=== PATIENT | male | born 1950 | race Caucasian/White ===

== ENCOUNTER → 2018-12-23 | Outpatient (CLI) | payer OTHER ==
[2018-12-23 18:32] LABS: ANION GAP 8 (5-13); BLOOD UREA NITROGEN 26 mg/dl (7-20); CALCIUM 9.6 mg/dl (8.4-10.2); CARBON DIOXIDE 23 mmol/L (21-31); CHLORIDE 113 mmol/L (97-110); CREATININE 0.88 mg/dl (0.61-1.24); Estimated GFR > 60 mL/min (>60); GLUCOSE 101 mg/dl (70-220); POTASSIUM 4.6 mmol/L (3.5-5.1); SODIUM 144 mmol/L (135-144)
== END | disposition home or self-care (01) ==
LOC: LAB 17:43
DX: R07.9 Chest pain, unspecified (principal)
CPT/HCPCS: 80048

== ENCOUNTER → 2019-01-12 | Outpatient (CLI) | payer OTHER ==
[2019-01-12] MEDS: NITROGLYCERIN AEROSOL (4.9 GM) (10:37)
[2019-01-12] MEDS: SOD CHLORIDE 0.9% 100 ML (10:41)
[2019-01-12] MEDS: IOHEXOL 100 ML (10:42)
[2019-01-12] MEDS: NITROGLYCERIN AEROSOL (4.9 GM) SL (17:01)
== END | disposition home or self-care (01) ==
LOC: C/S 09:16
DX: R94.39 Abnormal result of other cardiovascular function study (principal); R07.9 Chest pain, unspecified
CPT/HCPCS: 75571; 75571-59; 75574

== ENCOUNTER 2019-03-09 07:26 | Observation (INO) | payer OTHER ==
[2019-03-09 08:48] LABS: ADD MAN DIFF? NO
[2019-03-09 08:57] LABS: WHITE BLOOD COUNT 5.2 10^3/ul (4.8-10.8)
[2019-03-09 08:57] LABS: BASOPHILS % 0.2 % (0.0-2.0); EOSINOPHILS # 0.1 10^3/ul (0.0-0.5); EOSINOPHILS % 1.5 % (0.0-7.0); HEMATOCRIT 36.1 % (42.0-52.0); HEMOGLOBIN 11.9 g/dl (14.0-18.0); LYMPHOCYTES # 1.2 10^3/ul (0.8-2.9); LYMPHOCYTES % 23.9 % (15.0-51.0); MEAN CORPUSCULAR HEMOGLOBIN 32.6 pg (29.0-33.0); MEAN CORPUSCULAR VOLUME 98.9 fl (82.0-101.0); MEAN PLATELET VOLUME 9.7 fl (7.4-10.4); MONOCYTE # 0.6 10^3/ul (0.3-0.9); MONOCYTES % 11.4 % (0.0-11.0); NEUTROPHIL # 3.3 10^3/ul (1.6-7.5); NEUTROPHILS % 62.6 % (39.0-77.0); PLATELET COUNT 164 10^3/UL (140-415); RED BLOOD COUNT 3.65 10^6/ul (4.70-6.10); RED CELL DISTRIBUTION WIDTH 12.9 % (11.5-14.5)
[2019-03-09] MEDS ORDERED: HEPARIN 1000 UNITS/NS (A-LINE) 1,000 ML (09:01)
[2019-03-09] MEDS ORDERED: LIDOCAINE 1% (MDV) 20 ML INJ (09:01)
[2019-03-09] MEDS ORDERED: IODIXANOL LOCM 100 ML BTL ×2 (09:02→10:55)
[2019-03-09 09:13] LABS: INR 1.02; PROTIME 13.5 Sec (11.9-14.9); PT RATIO 1.1
[2019-03-09 09:14] LABS: PARTIAL THROMBOPLASTIN TIME 32.5 Sec (23.0-35.0)
[2019-03-09 09:16] LABS: ANION GAP 9 (5-13); BLOOD UREA NITROGEN 20 mg/dl (7-20); CALCIUM 9.2 mg/dl (8.4-10.2); CARBON DIOXIDE 25 mmol/L (21-31); CHLORIDE 114 mmol/L (97-110); CHOL/HDL RATIO 3.1 RATIO; CHOLESTEROL 91 mg/dl (100-200); CREATININE 0.93 mg/dl (0.61-1.24); Estimated GFR > 60 mL/min (>60); GLUCOSE 102 mg/dl (70-220); HDL CHOLESTEROL 29 mg/dl (31-75); LDL CHOLESTEROL,CALCULATED 50 mg/dl; POTASSIUM 4.5 mmol/L (3.5-5.1); TRIGLYCERIDES 62 mg/dl (0-149)
[2019-03-09] MEDS ORDERED: HEPARIN 1000 UNITS/ML 10 ML INJ (09:16)
[2019-03-09] MEDS ORDERED: VERAPAMIL 5 MG INJ (09:17)
[2019-03-09] MEDS ORDERED: NITROGLYCERIN (IC) 100 MCG/ML INJ (09:22)
[2019-03-09 09:31] LABS: SODIUM 148 mmol/L (135-144)
[2019-03-09] MEDS ORDERED: MIDAZOLAM 1 MG/ML 2 ML INJ (09:47)
[2019-03-09] MEDS ORDERED: FENTAnyl 50 MCG/ML VIAL (09:47)
[2019-03-09] MEDS ORDERED: IOHEXOL 350MG/ML 50 ML BTL (10:08)
[2019-03-09] MEDS ORDERED: BIVALIRUDIN 250MG /NS 50 ML 50 ML IVPB (10:53)
[2019-03-09] MEDS ORDERED: CLOPIDOGREL 300 MG TAB (10:55)
[2019-03-09] MEDS ORDERED: SOD CHLORIDE 0.45% 500 ML (10:55)
[2019-03-09] MEDS ORDERED: ASPIRIN 325 MG TAB (10:55)
[2019-03-09] MEDS ORDERED: ONDANSETRON 4 MG INJ IV (11:30)
[2019-03-09] MEDS ORDERED: AL HYDROX/MG HYDROX/SIMETH 30 ML CUP PO (11:30)
[2019-03-09] MEDS ORDERED: ACETAMINOPHEN 325 MG TAB PO (11:30)
[2019-03-09] MEDS ORDERED: OXYCODONE/ACETAMINOPHEN (5/325) TAB PO (11:30)
[2019-03-09] MEDS ORDERED: ZOLPIDEM 5 MG TAB PO (11:30)
[2019-03-09] MEDS: SOD CHLORIDE 0.9% 1,000 ML IV (11:39)
[2019-03-09] MEDS: DIPHENHYDRAMINE 50 MG CAP PO (16:11)
[2019-03-09] MEDS: DIAZEPAM 5 MG TAB PO (16:12)
[2019-03-09] MEDS: FAMOTIDINE 20 MG TAB PO (16:12)
[2019-03-09] MEDS: SOD CHLORIDE 0.45% 1,000 ML IV (16:13)
[2019-03-09] MEDS: GABAPENTIN 300 MG CAP PO ×2 (16:57→20:39)
[2019-03-09] MEDS: METOPROLOL 25 MG TAB PO (20:39)
[2019-03-09] MEDS: ATORVASTATIN 40 MG TAB PO (20:39)
[2019-03-10 04:40] LABS: ADD MAN DIFF? NO
[2019-03-10 04:45] LABS: BASOPHILS % 0.2 % (0.0-2.0); EOSINOPHILS # 0.1 10^3/ul (0.0-0.5); EOSINOPHILS % 1.5 % (0.0-7.0); HEMATOCRIT 34.8 % (42.0-52.0); HEMOGLOBIN 11.5 g/dl (14.0-18.0); LYMPHOCYTES # 1.1 10^3/ul (0.8-2.9); LYMPHOCYTES % 20.5 % (15.0-51.0); MEAN CORPUSCULAR HEMOGLOBIN 32.3 pg (29.0-33.0); MEAN CORPUSCULAR VOLUME 97.8 fl (82.0-101.0); MEAN PLATELET VOLUME 9.5 fl (7.4-10.4); MONOCYTE # 0.6 10^3/ul (0.3-0.9); MONOCYTES % 10.5 % (0.0-11.0); NEUTROPHIL # 3.7 10^3/ul (1.6-7.5); NEUTROPHILS % 67.1 % (39.0-77.0); PLATELET COUNT 151 10^3/UL (140-415); RED BLOOD COUNT 3.56 10^6/ul (4.70-6.10); RED CELL DISTRIBUTION WIDTH 12.5 % (11.5-14.5)
[2019-03-10 04:45] LABS: WHITE BLOOD COUNT 5.5 10^3/ul (4.8-10.8)
[2019-03-10 05:13] LABS: ANION GAP 7 (5-13); BLOOD UREA NITROGEN 14 mg/dl (7-20); CALCIUM 8.6 mg/dl (8.4-10.2); CARBON DIOXIDE 23 mmol/L (21-31); CHLORIDE 110 mmol/L (97-110); CREATININE 0.86 mg/dl (0.61-1.24); Estimated GFR > 60 mL/min (>60); GLUCOSE 90 mg/dl (70-220); POTASSIUM 4.5 mmol/L (3.5-5.1); SODIUM 140 mmol/L (135-144)
[2019-03-10] MEDS: AMLODIPINE 5 MG TAB PO (08:09)
[2019-03-10] MEDS: METOPROLOL 25 MG TAB PO (08:09)
[2019-03-10] MEDS: CLOPIDOGREL 75 MG TAB PO (08:09)
[2019-03-10] MEDS: ASPIRIN (EC) 81 MG TAB PO (08:09)
[2019-03-10] MEDS: LISINOPRIL 20 MG TAB PO (08:09)
[2019-03-10] MEDS: GABAPENTIN 300 MG CAP PO (08:10)
[2019-03-10] MEDS ORDERED: ASPIRIN (EC) 81 MG TAB PO (09:00)
[2019-03-10 11:09] LABS: TROPONIN-I 0.029 ng/ml (0.000-0.120)
== END 2019-03-10 13:10 | disposition home or self-care (01) ==
LOC: SDS 07:26 → REC 11:04 → ICU 16:00
DX: I25.10 Atherosclerotic heart disease of native coronary artery without angina pectoris (principal); I10 Essential (primary) hypertension; E78.5 Hyperlipidemia, unspecified
CPT/HCPCS: 71045; 80048; 80061; 84484; 85025; 85610; 85730; 87081; 92928; 93005; 93458; 99217